=== PATIENT | female | born 1990 | race African-American/Black ===

== ENCOUNTER 2016-06-25 00:50 | Emergency (ER) | payer MEDICAID, OTHER ==
[~2016-06-25] VITALS: Ht 167.6 cm; Wt 98.0 kg
[2016-06-25 01:32] VITALS: BP 129/69
[2016-06-25] MEDS ORDERED: KETOROLAC 60MG/2ML VIAL IM ONE (04:00)
== END 2016-06-25 04:39 | disposition home or self-care (01) ==
LOC: ER 04:31
DX: T63.301A Toxic effect of unspecified spider venom, accidental (unintentional), initial encounter (principal); F17.200 Nicotine dependence, unspecified, uncomplicated; F12.10 Cannabis abuse, uncomplicated; Y93.89 Activity, other specified; Y99.9 Unspecified external cause status; Y92.89 Other specified places as the place of occurrence of the external cause
CPT/HCPCS: 96372; 99283; J1885

== ENCOUNTER 2017-01-15 03:53 | Emergency (ER) | payer MEDICAID ==
[~2017-01-15] VITALS: Ht 167.6 cm; Wt 105.0 kg
[2017-01-15] MEDS ORDERED: ACETAMINOPHEN 325MG TABLET PO ONE (04:45)
[2017-01-15 05:17] LABS: CLARITY URINE CLOUDY (CLEAR); COLOR URINE YELLOW (YELLOW); GLUCOSE URINE NEGATIVE (NEGATIVE); KETONES URINE TRACE (NEGATIVE); LEUKOCYTE ESTERASE URINE NEGATIVE (NEGATIVE); NITRITE URINE NEGATIVE (NEGATIVE); OCCULT BLOOD URINE NEGATIVE (NEGATIVE); PH URINE 6.5 (4.5-8.0); PROTEIN URINE NEGATIVE (NEGATIVE); SPECIFIC GRAVITY URINE 1.027 (1.005-1.030)
[2017-01-15] MEDS ORDERED: HYDROCODONE/ACETAMINOPHEN 5/325MG TABLET PO ONE (05:45)
[2017-01-15] MEDS ORDERED: KETOROLAC 60MG/2ML VIAL IM ONE (05:45)
[2017-01-15 06:36] VITALS: BP 121/62
== END 2017-01-15 06:37 | disposition home or self-care (01) ==
LOC: ER 03:54
DX: M54.5 Low back pain (principal); F17.200 Nicotine dependence, unspecified, uncomplicated
CPT/HCPCS: 81001; 81025; 96372; 99283; J1885

== ENCOUNTER 2017-01-20 03:52 | Emergency (ER) | payer MEDICAID ==
[~2017-01-20] VITALS: Ht 167.6 cm; Wt 102.0 kg
[2017-01-20] MEDS: DIAZEPAM 5 MG TABLET PO ONE (05:09)
[2017-01-20] MEDS: HYDROCODONE/ACETAMINOPHEN 5/325MG TABLET PO ONE (05:09)
[2017-01-20] MEDS: KETOROLAC 60MG/2ML VIAL IM ONE (05:09)
[2017-01-20] MEDS: ONDANSETRON 4MG ODT PO ONE (05:09)
[2017-01-20 06:30] VITALS: BP 110/58
== END 2017-01-20 06:32 | disposition home or self-care (01) ==
LOC: ER 03:52
DX: M54.40 Lumbago with sciatica, unspecified side (principal); R03.0 Elevated blood-pressure reading, without diagnosis of hypertension; F17.210 Nicotine dependence, cigarettes, uncomplicated
CPT/HCPCS: 81025; 96372; 99284; J1885; Q0162

== ENCOUNTER 2017-01-21 11:43 | Emergency (ER) | payer MEDICAID ==
[~2017-01-21] VITALS: Ht 167.6 cm; Wt 105.0 kg
[2017-01-21 13:14] LABS: GLUCOSE URINE NEGATIVE (NEGATIVE); KETONES URINE NEGATIVE (NEGATIVE); LEUKOCYTE ESTERASE URINE TRACE (NEGATIVE); NITRITE URINE NEGATIVE (NEGATIVE); OCCULT BLOOD URINE 3+ (NEGATIVE); PH URINE 7.5 (4.5-8.0); PROTEIN URINE 1+ (NEGATIVE); SPECIFIC GRAVITY URINE 1.009 (1.005-1.030)
[2017-01-21 13:16] LABS: COLOR URINE BROWN (YELLOW)
[2017-01-21 13:17] LABS: CLARITY URINE CLOUDY (CLEAR)
[2017-01-21] MEDS ORDERED: ONDANSETRON HCL 4MG/2ML VIAL IV ONE (13:45)
[2017-01-21] MEDS ORDERED: SODIUM CHLORIDE 0.9% 1,000 ML IV ONE (13:45)
[2017-01-21] MEDS ORDERED: KETOROLAC 60MG/2ML VIAL IM ONE (15:00)
[2017-01-21 15:16] LABS: BASOPHILS % 0.3 % (0.0-2.0); EOSINOPHILS % 2.2 % (0.0-5.0); HEMATOCRIT. 32.1 % (36.0-48.0); HEMOGLOBIN. 10.9 g/dL (12.0-16.0); LYMPHOCYTES % 33.5 % (20.0-50.0); MEAN CORPUSCULAR HEMOGLOBIN 28.5 pg (28.0-32.0); MEAN CORPUSCULAR VOLUME 83.9 fL (81.0-99.0); MEAN PLATELET VOLUME 8.8 fl (7.4-10.4); MONOCYTES % 9.8 % (2.0-8.0); NEUTROPHILS % 54.2 % (40.0-76.0); PLATELET 173 x1000/uL (130-400); RED BLOOD CELL COUNT 3.83 mill/uL (4.2-5.4); RED CELL DISTRIBUTION WIDTH 17.1 % (11.6-14.6)
[2017-01-21 15:24] LABS: CARBON DIOXIDE 24 mEq/L (21-32); CHLORIDE 108 mEq/L (98-107)
[2017-01-21 16:06] VITALS: BP 104/64
== END 2017-01-21 16:08 | disposition home or self-care (01) ==
LOC: ER 11:45
DX: N39.0 Urinary tract infection, site not specified (principal); G89.29 Other chronic pain; M54.9 Dorsalgia, unspecified
CPT/HCPCS: 36415; 76770; 80053; 81001; 85025; 90471; 96361; 96374; 99285; J1885; J2405; J7030; Z7610

== ENCOUNTER 2017-05-28 03:55 | Emergency (ER) | payer MEDICAID ==
[~2017-05-28] VITALS: Ht 167.6 cm; Wt 105.0 kg
[2017-05-28] MEDS ORDERED: KETOROLAC 60MG/2ML VIAL IM ONE (07:45)
[2017-05-28 09:28] VITALS: BP 113/58
== END 2017-05-28 09:34 | disposition home or self-care (01) ==
LOC: ER 03:55
DX: M79.644 Pain in right finger(s) (principal)
CPT/HCPCS: 29130; 73130; 81025; 96372; 99284; J1885; Z7610

== ENCOUNTER 2018-06-26 22:15 | Emergency (ER) | payer MEDICAID ==
[~2018-06-26] VITALS: Ht 167.6 cm; Wt 113.3 kg
[2018-06-26] MEDS ORDERED: LORAZEPAM 2MG/ML CPJ IV ONE (23:45)
[2018-06-26] MEDS ORDERED: SODIUM CHLORIDE 0.9% 1,000 ML IV ONE (23:45)
[2018-06-26 23:59] LABS: BASOPHILS % 0.6 % (0.0-2.0); EOSINOPHILS % 1.5 % (0.0-5.0); HEMATOCRIT. 28.5 % (36.0-48.0); LYMPHOCYTES % 37.7 % (20.0-50.0); MEAN CORPUSCULAR HEMOGLOBIN 22.9 pg (28.0-32.0); MEAN CORPUSCULAR VOLUME 72.7 fL (81.0-99.0); MEAN PLATELET VOLUME 9.7 fl (7.4-10.4); MONOCYTES % 6.6 % (2.0-8.0); NEUTROPHILS % 53.6 % (40.0-76.0); PLATELET 252 x1000/uL (130-400); RED BLOOD CELL COUNT 3.92 mill/uL (4.2-5.4); RED CELL DISTRIBUTION WIDTH 18.7 % (11.6-14.6)
[2018-06-27 00:05] LABS: CHLORIDE 112 mEq/L (98-107)
[2018-06-27] MEDS ORDERED: LORAZEPAM 2MG/ML CPJ IV ONE (00:45)
[2018-06-27 03:42] VITALS: BP 113/53
== END 2018-06-27 03:49 | disposition home or self-care (01) ==
LOC: ER 22:15
DX: F41.1 Generalized anxiety disorder (principal); R06.4 Hyperventilation; F31.9 Bipolar disorder, unspecified; F17.200 Nicotine dependence, unspecified, uncomplicated
CPT/HCPCS: 36415; 71045; 80053; 83880; 84484; 85025; 85379; 93005; 96374; 96375; 99284; J2060; J7030; Z7610